=== PATIENT | male | born 1980 | race Caucasian/White ===

== ENCOUNTER 2024-06-08 20:39 | Emergency (ER) | payer BC ==
[~2024-06-08] VITALS: Ht 190.5 cm; Wt 81.6 kg
[2024-06-08 20:46] VITALS: BP 128/76; PULSE 82; RESP 18; TEMP 98; O2SAT 99
[2024-06-08] MEDS ORDERED: NAPR-337 PO (22:47)
[2024-06-08] MEDS ORDERED: BACI-418 TP (22:47)
[2024-06-08] MEDS: LIDOCAINE/EPI 1% 1:100000 20 ML VIAL INJ ONE (22:57)
[2024-06-08] MEDS: BACITRACIN OINT 500 UNITS/GM PKT TP ONE (22:57)
== END 2024-06-08 23:22 | disposition home or self-care (01) ==
LOC: MED 20:39
DX: S61.412A Laceration without foreign body of left hand, initial encounter (principal); Z79.899 Other long term (current) drug therapy; W26.0XXA Contact with knife, initial encounter; Y93.89 Activity, other specified; Y92.89 Other specified places as the place of occurrence of the external cause; Y99.8 Other external cause status
CPT/HCPCS: 12001; 99282; J2001; 90715

== ENCOUNTER 2024-07-04 05:20 | Emergency (ER) | payer BC ==
[~2024-07-04] VITALS: Ht 190.5 cm; Wt 84.9 kg
[~2024-07-04 05:20] MED LIST: BACI-418 TP; NAPR-337 PO
[2024-07-04 05:28] VITALS: BP 134/88; PULSE 79; RESP 18; TEMP 98.3; O2SAT 99
[2024-07-04 05:37] VITALS: BP 134/88; PULSE 79; RESP 18; TEMP 98.3; O2SAT 98
[2024-07-04] MEDS ORDERED: CEPH-588 PO (05:48)
[2024-07-04] MEDS ORDERED: IBUP-2213 PO (05:48)
== END 2024-07-04 05:51 | disposition home or self-care (01) ==
LOC: MED 05:20
DX: L40.9 Psoriasis, unspecified (principal); I10 Essential (primary) hypertension; Z90.49 Acquired absence of other specified parts of digestive tract; Z98.890 Other specified postprocedural states; Z79.899 Other long term (current) drug therapy; Z88.2 Allergy status to sulfonamides; Z88.8 Allergy status to other drugs, medicaments and biological substances
CPT/HCPCS: 99283